=== PATIENT | male | born 1975 | race African-American/Black ===

== ENCOUNTER 2020-03-12 18:55 | Inpatient (IN) | payer MEDICAID ==
[~2020-03-12] VITALS: Ht 172.7 cm; Wt 96.1 kg
[2020-03-12] MEDS ORDERED: LEVAHFA IH (19:54)
[2020-03-12] MEDS ORDERED: SERT50TA12 PO (19:54)
[2020-03-12] MEDS ORDERED: RISP2 PO (19:54)
[2020-03-12] MEDS ORDERED: OLANZapine 5 MG RAPDIS TABLET PO PRN (20:45)
[2020-03-12] MEDS ORDERED: PROMETHAZINE HCL 25 MG TABLET PO PRN (20:45)
[2020-03-12] MEDS ORDERED: LOPERAMIDE HCL 2 MG CAPSULE PO PRN (20:45)
[2020-03-12] MEDS ORDERED: LORazepam 2 MG TABLET PO PRN (20:45)
[2020-03-12] MEDS ORDERED: HydrOXYzine PAMOATE 50 MG CAPSULE PO PRN (20:45)
[2020-03-12] MEDS ORDERED: TUBERCULIN, PURIFIED PROTEIN DERIVATIVE 5 TU/0.1 ML SYRINGE ID ONE (20:45)
[2020-03-12] MEDS ORDERED: ZOLPIDEM TARTRATE 10 MG TABLET PO PRN (20:45)
[2020-03-12] MEDS ORDERED: GuaiFENesin/D-METHORPHAN [SUGAR-FREE] 200-20MG/10 ML SYRUP UDCUP PO PRN (20:45)
[2020-03-12] MEDS ORDERED: MAGNESIUM HYDROXIDE SUSPENSION 30 ML UDCUP PO PRN (20:45)
[2020-03-12] MEDS ORDERED: MAG HYDROX/AL HYDROX/SIMETH ES 30 ML SUSPENSION UDCUP PO PRN (20:45)
[2020-03-12] MEDS ORDERED: ACETAMINOPHEN 325 MG TABLET PO PRN (20:45)
[2020-03-12 20:46] LABS: BASOPHILS % (AUTO) 0.6 % (0.0-2.0); EOSINOPHILS % (AUTO) 0.4 % (1.0-6.0); HEMATOCRIT 42.2 % (41-53); HEMOGLOBIN 13.9 g/dL (13.5-17.5); LYMPHOCYTES # (AUTO) 2.5 K/uL (1.0-4.8); MEAN CORPUSCULAR HEMOGLOBIN 28.9 pg (26.0-34.0); MEAN CORPUSCULAR VOLUME 88 fL (80-100); MONOCYTES # (AUTO) 1.4 K/uL (0.1-1.0); MONOCYTES % (AUTO) 12.3 % (2.0-9.0); NEUTROPHILS # (AUTO) 7.7 K/uL (1.8-7.7); NEUTROPHILS % (AUTO) 65.7 % (40.0-70.0); PLATELET COUNT (AUTO) 241 K/uL (150-450); RED BLOOD CELL COUNT(AUTO) 4.81 MIL/uL (4.50-5.90); RED CELL DISTRIBUTION WIDTH 13.6 % (11.5-14.5)
[2020-03-12] MEDS ORDERED: PERTUSS(ACELL),DIPH,TET VAC/PF 0.5 ML VIAL IM ONE (21:00)
[2020-03-12] MEDS ORDERED: OLANZapine 5 MG RAPDIS TABLET PO SCH (21:00)
[2020-03-12] MEDS ORDERED: LORazepam 2 MG TABLET PO ONE (21:00)
[2020-03-12] MEDS ORDERED: RisperiDONE 1 MG TABLET PO ONE (21:00)
[2020-03-12] MEDS ORDERED: BACITRACIN 0.9 GM PACKET OINTMENT TP ONE (21:00)
[2020-03-12] MEDS: THIAMINE HCL 100 MG TABLET PO SCH (21:00)
[2020-03-12 21:14] LABS: ANION GAP 13 mmol/L (8-16); CALCIUM, TOTAL 8.9 mg/dL (8.8-10.5); CARBON DIOXIDE 22 mmol/L (22-29); CHLORIDE 106 mmol/L (98-107); CREATININE 1.74 mg/dL (0.60-1.30); GLOMERULAR FILTR. RATE CALC 52 mL/min (>60); GLUCOSE,RANDOM 96 mg/dL (70-110); POTASSIUM 3.3 mmol/L (3.5-5.1); SODIUM SERUM 141 mmol/L (136-145); UREA NITROGEN, BLOOD 28 mg/dL (7-18)
[2020-03-12 21:17] LABS: ALANINE AMINOTRANSFERASE 32 U/L (12-78); ALKALINE PHOSPHATASE 50 U/L (46-116); ASPARTATE AMINOTRANSFERASE 39 U/L (15-37); BILIRUBIN,TOTAL 0.6 mg/dL (0.1-1.0); TOTAL PROTEIN, SERUM 7.7 g/dL (6.4-8.2)
[2020-03-12] MEDS ORDERED: POTASSIUM CHLORIDE 10% 40 MEQ/30 ML LIQUID UDCUP PO ONE (21:45)
[2020-03-13 00:01] VITALS: BP 119/71
[2020-03-13] MEDS ORDERED: PNEUMOCOCCAL VACCINE POLYVALENT 0.5 ML VIAL [PPSV23] IM ONE (01:45)
[2020-03-13] MEDS: FOLIC ACID 1 MG TABLET PO SCH (08:55)
[2020-03-13] MEDS: THIAMINE HCL 100 MG TABLET PO SCH ×2 (08:56→17:35)
[2020-03-13] MEDS: MULTIVITAMINS WITH MINERALS, THERAPEUTIC TABLET PO SCH (08:56)
[2020-03-13] MEDS: NALTREXONE HCL 50 MG TABLET PO SCH (08:56)
[2020-03-13 08:57] VITALS: BP 102/68
[2020-03-13] MEDS ORDERED: RisperiDONE 1 MG TABLET PO PRN (15:30)
[2020-03-13 16:34] VITALS: BP 116/71
[2020-03-13] MEDS ORDERED: RisperiDONE 3 MG TABLET PO SCH (21:00)
[2020-03-14 06:08] VITALS: BP 107/64
[2020-03-14 08:15] VITALS: BP 110/52
[2020-03-14] MEDS: NALTREXONE HCL 50 MG TABLET PO SCH (09:24)
[2020-03-14] MEDS: THIAMINE HCL 100 MG TABLET PO SCH ×2 (09:24→16:47)
[2020-03-14] MEDS: MULTIVITAMINS WITH MINERALS, THERAPEUTIC TABLET PO SCH (09:24)
[2020-03-14] MEDS: FOLIC ACID 1 MG TABLET PO SCH (09:24)
[2020-03-14 16:14] VITALS: BP 107/68
[2020-03-14] MEDS: RisperiDONE 3 MG TABLET PO SCH (20:28)
[2020-03-15 06:38] VITALS: BP 107/61
[2020-03-15 08:43] VITALS: BP 129/83
[2020-03-15] MEDS: MULTIVITAMINS WITH MINERALS, THERAPEUTIC TABLET PO SCH (09:09)
[2020-03-15] MEDS: THIAMINE HCL 100 MG TABLET PO SCH ×2 (09:09→17:00)
[2020-03-15] MEDS: NALTREXONE HCL 50 MG TABLET PO SCH (09:09)
[2020-03-15] MEDS: FOLIC ACID 1 MG TABLET PO SCH (09:09)
[2020-03-15 16:15] VITALS: BP 115/66
[2020-03-15] MEDS ORDERED: PALIPERIDONE PALMITATE 234 MG/1.5 ML SYRINGE IM ONE (17:00)
[2020-03-15] MEDS: RisperiDONE 3 MG TABLET PO SCH (20:34)
[2020-03-16 05:10] VITALS: BP 114/70
[2020-03-16 08:22] VITALS: BP 100/63
[2020-03-16] MEDS: MULTIVITAMINS WITH MINERALS, THERAPEUTIC TABLET PO SCH (08:31)
[2020-03-16] MEDS: THIAMINE HCL 100 MG TABLET PO SCH ×2 (08:31→16:38)
[2020-03-16] MEDS: FOLIC ACID 1 MG TABLET PO SCH (08:31)
[2020-03-16] MEDS: NALTREXONE HCL 50 MG TABLET PO SCH (08:31)
[2020-03-16] MEDS ORDERED: RISP3 PO (15:43)
[2020-03-16] MEDS ORDERED: NALT50TA PO (15:43)
[2020-03-16 16:25] VITALS: BP 103/56
[2020-03-16] MEDS ORDERED: THIA100T67 PO (16:36)
[2020-03-16] MEDS ORDERED: FOLI1 PO (16:38)
[2020-03-16] MEDS ORDERED: MULT-1239 PO (16:39)
[2020-03-19] MEDS ORDERED: PALIPERIDONE PALMITATE 156 MG/ML SYRINGE IM ONE (09:00)
== END 2020-03-16 17:00 | disposition home or self-care (01) | DRG 754 ==
LOC: EMS 18:55 → B2S 20:44
PROVIDERS: ADMIT Psychiatry & Neurology Psychiatry; ATTEND Psychiatry & Neurology Psychiatry
DX: F32.9 Major depressive disorder, single episode, unspecified (principal); F10.231 Alcohol dependence with withdrawal delirium; E87.6 Hypokalemia; F15.10 Other stimulant abuse, uncomplicated; F17.210 Nicotine dependence, cigarettes, uncomplicated; Z91.19 Patient's noncompliance with other medical treatment and regimen; S00.83XA Contusion of other part of head, initial encounter; S00.81XA Abrasion of other part of head, initial encounter; X58.XXXA Exposure to other specified factors, initial encounter; Y93.89 Activity, other specified; Y92.89 Other specified places as the place of occurrence of the external cause; Y99.8 Other external cause status
CPT/HCPCS: 90715; G0480